=== PATIENT | male | born 1960 | race Caucasian/White ===

== ENCOUNTER → 2018-09-03 | Outpatient (CLI) | payer OTHER ==
--- NOTE | 2018-09-03 19:44 | US ---
EXAM DESCRIPTION: Abdomen,Complete: Ultrasound. CLINICAL HISTORY: ELEVATED LFT'S COMPARISON: None Available. TECHNIQUE: Transabdominal scannin-dimensional and Doppler modes. FINDINGS: Gallbladder: Normal size with no intraluminal stones or sludge. Normal wall thickness 1.7 mm with no surrounding fluid. Nontender with transducer pressure. Common bile duct: 4 mm caliber, normal limits. Liver: Increased echogenicity. Right lobe long axis is 16.8 cm. No intrahepatic duct dilation. Normal direction of flow in the portal and hepatic veins. Smooth capsule with no ascites. Pancreas: Included segments is normal echogenicity and pancreatic duct not seen.. Abdominal aorta: Normal caliber from the proximal segment to the distal bifurcation. IVC: visualized; normal caliber. Spleen normal echogenicity; long axis measurement is 9.9 cm. Right kidney: 9.5 cm long axis with slightly echogenic cortex measuring 11.3 mm thickness. No hydronephrosis or perinephric fluid. Proximal ureters not seen. Left kidney: 9.3 cm long axis with slightly echogenic cortex measuring 13.3 mm. No hydronephrosis or perinephric fluid. Proximal ureters not seen. IMPRESSION: 1. Liver borderline enlarged with steatosis. Normal intrahepatic ducts and vascularity. Smooth capsule with no ascites. Pancreas is unremarkable. 2. Gallbladder is unremarkable and normal caliber of the common bile duct. Spleen is negative. 3. Bilateral renal cortexes are slightly echogenic and minimal thinning right more than left. Correlate for history of renal disease. No hydronephrosis. Normal caliber of the abdominal aorta and IVC. Electronically signed by: Bala Slade MD 09/03/2018 7:41 PM [facility]
== END ==
LOC: US 09:04
PROVIDERS: ATTEND Family Medicine
DX: R94.5 Abnormal results of liver function studies (principal); K76.0 Fatty (change of) liver, not elsewhere classified

== ENCOUNTER → 2019-01-16 | Outpatient (CLI) | payer OTHER | LOC: LAB.O 15:11 | PROVIDERS: ATTEND Urology | DX: R97.20 Elevated prostate specific antigen [PSA] (principal); N52.9 Male erectile dysfunction, unspecified; R35.0 Frequency of micturition ==

== ENCOUNTER 2020-07-01 11:52 | Outpatient (CLI) | payer BC, OTHER | END 2020-07-01 16:18 | disposition home or self-care (01) | LOC: INFRM 11:52 | PROVIDERS: ATTEND Family Medicine | DX: U07.1 COVID-19 (principal); I10 Essential (primary) hypertension; Z23 Encounter for immunization ==